=== PATIENT | female | born 1955 | race African-American/Black ===

== ENCOUNTER 2024-02-10 11:34 | Emergency (ER) | payer OTHER, MEDICARE, MEDICAID, SELFPAY ==
--- NOTE | ~2024-02-10 | XR_ITS ---
XR hip LT 2V w AP pelvis 02/10/2024 11:53 Indication: 3 views left hip including AP pelvis Procedure: No prior studies for comparison. Comparison: No prior studies for comparison. Findings: Pelvic rings are intact. No fracture, subluxation or dislocation. 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 There is lower lumbar spondylosis. Impression: 1: No acute fracture. Reviewed, dictated and finalized at location B. Impression: 1: No acute fracture.
[2024-02-10 11:42] VITALS: BP 121/62; PULSE 68; RESP 16; TEMP 36.4; O2SAT 97
[2024-02-10 11:43] VITALS: BP 121/68; PULSE 78; RESP 16; TEMP 36.7; O2SAT 100
--- NOTE | 2024-02-10 11:48 | ED.LOWEXIN ---
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 Hospice nurse is concerned hip fracture. Patient states the hip pain is relieved with her current regimen of pain medications. Review of Systems Review of Systems: CONSTITUTIONAL: Denies fever, chills, or sweats. EYES: Denies visual changes, redness, or discharge. ENT: Denies rhinorrhea, congestion, sore throat, or otalgia. CARDIOVASCULAR: Denies chest pain, palpitations, or edema. RESPIRATORY: Denies cough or dyspnea. GASTROINTESTINAL: Denies abdominal pain, nausea, vomiting, or diarrhea. GENITOURINARY: Denies dysuria or hematuria. SKIN: Denies rash or itching. MUSCULOSKELETAL: Reports left hip pain NEUROLOGIC: Denies headache, numbness, dizziness, or weakness. PSYCHIATRIC: Denies anxiety or depression. Exam Narrative: GENERAL: Cachectic and ill-appearing HEAD: Normocephalic, atraumatic. EYES: Conjunctivae normal, PERRLA and EOMI. CHEST: Clear to auscultation. No respiratory distress. No wheezes rales or rhonchi. HEART: Regular rate and rhythm. No murmur heard. Normal peripheral pulses. EXTREMITIES: Left hip: +TTP over trochanter, no inguinal pain. Passive FROM of hip, pain with adduction SKIN: Warm, dry, no rash. No noted wounds NEURO: No focal deficits. Alert and oriented x3. PSYCH: Cooperative. Normal mood and affect. Course Vital Signs Vital signs: Vital Signs Temperature 36.4 C 02/10/24 11:42 Pulse Rate 68 02/10/24 11:42 Respiratory Rate 02/10/24 11:42 Blood Pressure 121/62 02/10/24 11:42 Pulse Oximetry 97 02/10/24 11:42 Temperature 36.4 C 02/10/24 11:42 Pulse Rate 68 02/10/24 11:42 Respiratory Rate 16 02/10/24 11:42 Blood Pressure 121/62 02/10/24 11:42 Pulse Oximetry 97 02/10/24 11:42 Discharge Plan Discharge Clinical Impression: Contusion of hip, left Qualifiers: Encounter type: initial encounter Qualified Code(s): S70.02XA - Contusion of left hip, initial encounter Patient Disposition: Hospice - Home Condition: Stable Instructions: Contusion in Adults (ED) Time of Disposition: 12:14
[2024-02-10 12:31] VITALS: BP 116/68; PULSE 68; RESP 16; TEMP 36.7; O2SAT 100
[2024-02-10 13:30] VITALS: BP 113/68; PULSE 70; RESP 14; TEMP 36.5; O2SAT 100
== END 2024-02-10 14:23 | disposition hospice, home (50) ==
LOC: ANHED 12:24
PROVIDERS: Emergency Provider Nurse Practitioner Family
DX: S70.02XA Contusion of left hip, initial encounter (principal); W19.XXXA Unspecified fall, initial encounter
CPT/HCPCS: 73502; 99284